=== PATIENT | female | born 1975 | race Caucasian/White ===

== ENCOUNTER 2018-10-04 22:25 | Emergency (ER) | payer OTHER ==
[2018-10-04] MEDS ORDERED: KETOROLAC 60 MG/2 ML VIAL IM STA (22:53)
[2018-10-04] MEDS ORDERED: CYCLOBENZAPRINE 10 MG TAB PO STA (22:53)
--- NOTE | 2018-10-04 23:20 | XR ---
EXAM: XR Lumbar Spine, 2 or 3 Views CLINICAL HISTORY: fall TECHNIQUE: Frontal and lateral views of the lumbar spine. COMPARISON: No relevant prior studies available. FINDINGS: Vertebrae: No acute fracture or malalignment. Disc spaces: Mild degenerative changes. Soft tissues: Unremarkable. IMPRESSION: No acute fracture or malalignment.
--- NOTE | 2018-10-04 23:40 | ED ---
Back Pain HPI - General Chief Complaint: Back Pain/Injury Stated Complaint: Back pain Time Seen by Provider: 10/04/18 22:39 Source: patient Limitations: no limitations - History of Present Illness Initial Comments: 42-year-old female presenting today for chief complaint of pain shooting down right leg. Patient states that she collided walking volleyball with another person. She states she fell onto her bottom. Patient states that since she has had sharp shooting pain from the mid buttock down to the ankle. She denies any midline back pain she denies fever or chills IV drug use history of cancer she denies any loss of bowel bladder control urinary retention loss of sensation or muscle weakness of the lower extremities. Patient states the pain is okay while she is sitting still but exacerbated by walking. Patient denies any head injury or injury to the neck or thoracic spine. She does a nausea vomiting abdominal pain injury to the upper or lower extremities. Remaining review of systems negative upon arrival patient appears well no signs of acute distress. - Related Data Previous Rx's Medication Instructions Recorded Cyclobenzaprine [Flexeril] 10 mg PO TID PRN 7 Days #21 tab 10/04/18 Ibuprofen 800 mg PO Q8H PRN 7 Days #21 tablet 10/04/18 Allergies Allergy/AdvReac Type Severity Reaction Status Date / Time Latex, Natural Rubber AdvReac Rash/Hives Verified 10/04/18 22:37 Review of Systems ROS Statement: Those systems with pertinent positive or pertinent negative responses have been documented in the HPI. ROS Other: All systems not noted in ROS Statement are negative. Past Medical History Additional Past Medical History / Comment(s): sciatica History of Any Multi-Drug Resistant Organisms: None Reported Past Surgical History: Section, Cholecystectomy Past Psychological History: No Psychological Hx Reported Smoking Status: Current every day smoker Past Alcohol Use History: None Reported Past Drug Use History: None Reported General Exam - General Exam Comments Initial Comments: General: The patient is awake and alert, in no distress, and does not appear acutely ill. Eye: Pupils are equal, round and reactive to light, extra-ocular movements are intact. No nystagmus. There is normal conjunctiva bilaterally. No signs of icterus. Ears, nose, mouth and throat: There are moist mucous membranes and no oral lesions. Neck: The neck is supple, there is no tenderness or JVD. Cardiovascular: There is a regular rate and rhythm. No murmur, rub or gallop is appreciated. Respiratory: Lungs are clear to auscultation, respirations are non-labored, breath sounds are equal. No wheezes, stridor, rales, or rhonchi. Gastrointestinal: Soft, non-distended, non-tender abdomen without masses or organomegaly noted. There is no rebound or guarding present. Musculoskeletal: Normal inspection of the thoracic and lumbar spine. Patient has no midline or paravertebral tenderness of the thoracic or lumbar spine. Patient does have a sharp shooting pain when I palpate the mid buttock. Normal ROM, of the hips ankles and knees bilaterally patient does complain of pain with range of motion at the right hip. Strength 5/5 of the lower extremities equal comparison bilaterally. Sensation intact equal comparison bilaterally of the lower extremities including saddle region. DP pulses equal bilaterally 2+. Neurological: A&O x 3. CN II-XII intact, There are no obvious motor or sensory deficits. Coordination appears grossly intact. Speech is normal. Skin: Skin is warm and dry and no rashes or lesions are noted. Psychiatric: Cooperative, appropriate mood & affect, normal judgment. Limitations: no limitations Course Vital Signs 10/04/18 10/05/18 22:35 00:01 Temperature 98.4 F 98.3 F Pulse Rate 109 H 94 Respiratory 16 18 Rate Blood Pressure 147/98 125/83 O2 Sat by Pulse 99 96 Oximetry Medical Decision Making - Medical Decision Making Well-appearing 42-year-old female presenting for fall sharp shooting pain down right leg.The are of point localized tenderness and history appear consistent with sciatic pain. Patient has no neurovascular deficits on examination. No red flags on history or examination. No acute abnormalities on imaging studies of the lumbar spine. At this time I feel patient is stable for discharge with symptomatic treatment. Patient is to follow-up with primary care provider return parameters were discussed at length. patient discharged appearing well after discussing case with Dr. Galeas Disposition Clinical Impression: Sciatic nerve pain, Fall Disposition: HOME SELF-CARE Condition: Good Instructions (If sedation given, give patient instructions): Sciatica (ED) Additional Instructions: Please use medication as discussed. Please follow-up with family doctor in the next 2 days.. Please return to emergency room if the symptoms increase or worsen or for any other concerns. Prescriptions: Cyclobenzaprine [Flexeril] 10 mg PO TID PRN 7 Days #21 tab PRN Reason: Muscle Spasm Ibuprofen 800 mg PO Q8H PRN 7 Days #21 tablet PRN Reason: Pain Is patient prescribed a controlled substance at d/c from ED?: No Referrals: Nonstaff,Physician [Primary Care Provider] - 1-2 days Time of Disposition: 23:39
[2018-10-05 00:03] VITALS: BP 125/83; PULSE 94; RESP 18; TEMP 98.3
== END 2018-10-05 00:03 | disposition home or self-care (01) ==
LOC: EC 22:25
DX: M54.31 Sciatica, right side (principal); F17.200 Nicotine dependence, unspecified, uncomplicated; Z91.040 Latex allergy status; Z91.048 Other nonmedicinal substance allergy status; W19.XXXA Unspecified fall, initial encounter
CPT/HCPCS: 72100; 99283; 96372; J1885